=== PATIENT | male | born 1980 | race Caucasian/White ===

== ENCOUNTER 2024-06-21 00:36 | Emergency (ER) | payer OTHER ==
[~2024-06-21] VITALS: Ht 167.6 cm; Wt 85.0 kg
[2024-06-21] MEDS ORDERED: OXYC5 PO (01:33)
[2024-06-21] MEDS ORDERED: ACET-3385 PO (01:33)
[2024-06-21] MEDS ORDERED: IBUP-1492 PO (01:33)
[2024-06-21] MEDS: OxyCODONE HCL 5 MG IR TABLET PO ONE (01:40)
[2024-06-21] MEDS: KETOROLAC TROMETHAMINE 30 MG/ML VIAL IM ONE (01:43)
[2024-06-21 02:23] VITALS: BP 124/68; PULSE 69; RESP 16; TEMP 98.3
== END 2024-06-21 03:12 | disposition home or self-care (01) ==
LOC: EMS 00:36
DX: M54.12 Radiculopathy, cervical region (principal)
CPT/HCPCS: 99283; 96372; J1885